=== PATIENT | male | born 1965 | race Two or more races ===

== ENCOUNTER 2024-09-04 05:54 | Emergency (ER) | payer MEDICAID, SELFPAY ==
[2024-09-04] VITALS (9 sets, daily range): BP systolic 106–176; BP diastolic 70–95; PULSE 52–69; RESP 13–18; TEMP 36.3–36.8; O2SAT 96–99; BMI 28.8
--- NOTE | 2024-09-04 | XR_ITS ---
Examination: MRI right hand, without contrast Date and time of exam: September 04, 2024, 1726 hours INDICATIONS: Patient woke up this morning with swelling involving the dorsum of the hand Technique: Multiple axial sagittal and coronal images of the right hand have been obtained with the Siemens high-resolution 1.5 Mansi MRI scanner. Images obtained include T2-weighted fat-suppressed sagittal sections, TR 3500, TE 46, T2 weighted coronal fat suppressed images, TR 3050, TE 84, T2-weighted transverse fat suppressed images, TR 3260, TE 63, proton density transverse images, TR 4720 TE 46, and T1 weighted coronal images, TR 560, TE 13. Findings: Extensive edema dorsum of the hand Fluid collection consistent with abscess dorsal to the third fourth and fifth metacarpals, mediolateral dimension at least 5 cm dorsal palmar dimension , thickness 1.7 cm and proximal distal dimension at least 9 cm extending from the wrist to the proximal phalanges especially fourth and fifth digits Extensor tendons intact Negative for osteomyelitis No foreign bodies IMPRESSION: Fluid collection consistent with abscess dorsum of the hand as above, measuring 5 x 1.7 x 9 cm
--- NOTE | 2024-09-04 06:07 | XR_ITS ---
Examination: Hand, right 3 views Technique: Hand AP, oblique, lateral 3 views Date and time of exam: September 11, 2024 0614 hours INDICATIONS: Swelling involving the right hand today FINDINGS: No acute fracture Soft tissue swelling dorsum of hand No opaque foreign body No cortical bone destruction IMPRESSION: Soft tissue swelling dorsum of the hand No cortical bone destruction No opaque foreign body
--- NOTE | 2024-09-04 06:07 | XR_ITS ---
Examination: PA chest single view TECHNIQUE: Upright PA chest single view Date and time: September 04, 2024 0612 hours INDICATIONS: Weakness chest pain today. FINDINGS: Normal heart size Lungs are clear. The osseous structures are intact IMPRESSION: No active disease
--- NOTE | 2024-09-04 06:09 | PD.EDADULT ---
ED General RME/HPI General Chief complaint: Extremity Problem,Nontraumatic Stated complaint: SEVERE SWELLING TO RIGHT HAND AND WRIST Time Seen by Provider: 09/04/24 06:06 Arrival date/time: 09/04/24 05:54 RME / HPI RME / HPI narrative: DR. BERMUDEZ MAIN ED EVALUATION: 59 year old male with past medical history significant for hypertension and hyperlipidemia presents to the Emergency Department with complaint of right hand and wrist pain with swelling. Patient denies any fall or injury. No other symptoms reported at this time. At 1220 hours, the patient recalls poking his right finger with a cactus. Related Data Home Medications ?Medication ?Instructions ?Recorded ?Confirmed atorvastatin 20 mg tablet 20 mg PO QDAY 08/31/19 05/01/22 lisinopril 20 mg tablet 20 mg PO QDAY 08/31/19 05/01/22 Allergies Allergy/AdvReac Type Severity Reaction Status Date / Time No Known Allergies Allergy Verified 09/04/24 05:57 Review of Systems Review of Systems Systems Reviewed: All systems reviewed, normal except as documented Narrative Review of Systems: Constitutional: DENIES: fevers; Eyes: DENIES: loss of vision; Head/Ear/Nose: DENIES: loss of hearing. Throat: DENIES: dysphagia. Cardiovascular: DENIES: chest pain, dyspnea, or syncope. Respiratory: DENIES: shortness of breath; Gastrointestinal: DENIES: rectal bleeding or melena. Genitourinary: DENIES: dysuria (painful or difficult urination); Musculoskeletal: POSITIVES: right hand and wrist pain with swelling Skin: DENIES: rash; Neurological: DENIES: loss of function or movement; Psychiatric: DENIES: recent major life stressor, emotional problem, illicit drug use or abuse; Endocrinology: DENIES: weight change,; Hematologic/Lymphatic: DENIES: abnormal bruising. Allergic/Immunologic: DENIES: urticaria (hives). Past Medical History Past Medical History CARDIAC: Positive Cardiac Disorders, Hypercholesterolemia (TAKES MED) and Hypertension (TAKES MED) Family History FAMILY HISTORY: Positive Family Cardiac Disorders (MOTHER (HTN)) and Family Surgery (MOTHER) Social History SMOKING STATUS: Never smoker SUBSTANCE USE: does not use ALCOHOL: Never ED Exam Narrative Physical exam: Physical Exam: General: The vital signs were reviewed. The patient is non-toxic, in no apparent distress and appears healthy with a patent airway, no respiratory distress and has no apparent circulatory problems. Head & Scalp: Normocephalic, atraumatic. Face: Appears normal and is without lesions, deformity. Ears: Left external pinna appears normal. Right external pinna appears normal. Eyes: The sclera is anicteric. No obvious photophobia. The Left and Right Orbit/Lid/Conjunctiva appears normal without swelling, discoloration or injection. Nose: The nose is without deformity, discharge or tenderness; Throat: Appears normal. The mucous membranes are pink and moist without exudates, redness or mass seen. The tongue appears normal. Neck: The neck is supple and no apparent mass or adenopathy. Chest: The chest wall is normal in size and symmetry and has no chest wall tenderness or crepitus. The patient displays normal ventilator effort without retractions, accessory muscle use and has adequate air movement bilaterally with no wheezes and no rales. Cardiovascular: Regular rate and rhythm; No murmurs, rubs, or gallops; Gastrointestinal: The abdomen appears normal. No obvious hernias or mass. The abdomen is soft and benign, non-distended, with no pain, no guarding and no rebound tenderness. Bowel sounds are present and normal sounding. No CVA tenderness. Genitourinary: Back/Spine: Normal inspection Extremities/Musculoskeletal/lymphatic: Right hand is extremely swollen and diffusely red with minimal tenosynovitis. There is no purulence there is no obvious break in the skin and the swelling and redness extends down to the distal forearm maybe a third [address] way. There is a little break in the skin on the forearm where he says he scraped up a door. The swelling involves all the fingers thumb wrist and hand up to the forearm. Otherwise the proximal humerus elbow and proximal forearm are within normal limits. There is no visual lymphangitic streak moving up the arm. The bilateral upper and lower extremities are warm. There is no evidence of arterial insufficiency. There is no evidence of venous insufficiency/edema. The patient spontaneously moves bilateral upper and lower extremities with no pain and no limitation of movement. There is no apparent, injury or trauma. Skin: The skin is warm, dry and intact. No rashes. No petechia. No purpura. No abnormal bruising. The color is appropriate with no cyanosis. Mental status/Psychiatric: Mental status is appropriate for age. The patient has no apparent delusions, visual hallucinations, no apparent audible hallucinations. The patient has no apparent suicidal thoughts/ideation and no apparent homicidal thoughts/ideation. Neurological: The patient is awake, alert, interactive, cordial, cooperative and is oriented to name and situation. The patient follows commands and answers historical question with no impairment. There is no visual disturbance apparent. The pupils are equal and reactive bilaterally with normal eye movements and no diplopia The bilateral upper and lower extremities have normal strength, normal range of motion and normal functioning. The gait, station and balance appear to be baseline with no acute change Course Quality Measures none Orders Category Date Time Status Insert IV NOW Care 09/04/24 06:07 Active MRI Screening NOW Care 09/04/24 15:24 Active Referral - Mover Helper Stat Cons 09/04/24 12:26 Active MR hand RT wo con Stat Exams 09/04/24 Ordered US venous doppler UE RT Stat Exams 09/04/24 06:08 Completed XR chest 1V portable Stat Exams 09/04/24 06:07 Completed XR hand comp RT min 3V Stat Exams 09/04/24 06:07 Completed Blood Culture (Lab) Stat Lab 09/04/24 06:34 Received CBC Stat Lab 09/04/24 06:34 Completed Comprehensive Metabolic Panel Stat Lab 09/04/24 06:34 Completed Lactate (Lactic Acid) Stat Lab 09/04/24 06:34 Completed Urinalysis, C/S if Indicated Stat Lab 09/04/24 06:34 Completed Piper/Tazo 3.375 gm Premix [Zosyn] Med 09/04/24 22:00 Active 3.375 gm in 50 ml IV Q8HR Piper/Tazo 3.375 gm Premix [Zosyn] Med 09/04/24 06:12 Discontinued 3.375 gm in 50 ml IV X1 Piper/Tazo 3.375 gm Premix [Zosyn] Med 09/04/24 15:30 Discontinued 3.375 gm in 50 ml IV X1 Vancomycin Inj 1,000 mg Med 09/04/24 06:13 Discontinued Sodium Chloride 0.9% 250 ml [Ns] 250 ml IV X1 Vital Signs Vital signs: Vital Signs Temperature 98.1 F 09/04/24 06:01 Pulse Rate 68 09/04/24 06:01 Respiratory Rate 18 09/04/24 06:01 Blood Pressure 176/95 H 09/04/24 06:01 Pulse Oximetry (%) 96 09/04/24 06:01 Discharge Plan Plan Patient Disposition: Admit Acute Care w/in Hospital Discharge Disposition comment: Hospitalist to admit Prescriptions/Referrals Prescriptions/Med Rec: No Action atorvastatin 20 mg Tablet 20 mg PO QDAY lisinopril 20 mg Tablet 20 mg PO QDAY Referrals: No Primary/Family,Physician [Primary Care Provider] - In 1 week Problem List Clinical Impression: Cellulitis of hand, right, Lymphangitis, Tenosynovitis Patient/Caregiver Discharge Instructions Print Language: Cymro Stand Alone Forms: Melodie Award Info., Patient Portal Info Letter MDM Narrative [facility] hospital course: I was asked to come see this patient in triage area has got an obvious swollen hand that is red and concerning for infection possible DVT. Will work him up at 0605 hrs. Medical workup is back reveals an ultrasound of the right upper extremity with no DVT. X-ray of the hand read by myself reveals no foreign body lots of soft tissue swelling though. There is no fracture or dislocation. CBC and CHEM panels are unremarkable. I went back in the room asked the patient if he about his hand and any other possible mechanism. He does recall now a cactus poking his right fourth finger but really did not think much of it but this occurred evidently yesterday. Also patient reports that the swelling which was on the distal forearm is now moving more proximally another 2 inches since this morning. Clinically patient does not have a necrotizing fasciitis he probably has early tenosynovitis and all fingers are involved as the whole hand and forearm half-way up is swollen and red. There is a little hint of a red streak on the right medial side of the arm. We have no Ortho on-call and no hand surgeon on-call so the transfer nurse was contacted and work on a transfer for this patient. At 1220 hours, the patient recalls poking his right finger with a cactus. Patient obviously has a cellulitis rapidly extending from this. We have no hand surgeon at this facility and have no Ortho on-call. Transfer nurse was contacted and they started the process eventually got [facility] Darryl spoke with Griselda and presented the case.. At 1500 hrs. I am informed that the hand surgeon Dr. Lim does not feel any surgical intervention is needed and that the patient can be admitted anywhere for antibiotics. I asked [facility] ER transfer nurse to asked them if the hospitalist here at this facility can recontact them in a day or 2 if the patient is not getting better. She recontacted current medical and stated they would not guarantee their availability or ability to assist at that point. I then called the resident hospitalist on-call discussed with the hospitalist admitting the patient here and calling back if they need to have further discussion. At 1700 hrs. they called MR and the hand scan is still pending and will probably be 1725 before they get to them. Because of the delay in the report of probably come back after 1800 hrs. this to be signed out to my oncoming partner at [address] Almanza. Bottom line is this patient will be transferred to another facility if there are abscesses on the hand MRI. This was the plan per the previous resident and the transfer nurse consultations with hand surgeons at [facility]. Oumou Yusuf, jose luis scribing for and in the presence of Dr. Bermudez. Clinical Information Provided by patient Medical Records Reviewed [facility] Meds/Rx Considered, not Ordered None Labs/Rad/Tests considered, not Ordered None Chronic Illness/Social Conditions Add or document further as needed: Hypertension and hyperlipidemia Imaging Radiology reports / interpretation(s): Procedure(s): US venous doppler UE RT Accession Number(s): [id number] cc: Chan Bermudez MD; Amos Yadav MD; NO PRIMARY/FAMILY,PHYSICIAN~ Examination: Duplex scan of the upper extremity, unilateral right Date and time of exam: September 04, 2024 0740 hours INDICATIONS: Right hand swelling pressure and pain today Technique: Duplex scan of the extremity veins using B-mode/grayscale imaging and Doppler spectral analysis and color flow Attention is directed to internal echogenicity, compression and augmentation involving these veins, color flow assessment, spectral analysis Findings: Major deep venous structures in the extremity demonstrate normal course and caliber. There is no evidence of deep vein thrombosis. Normal color flow and spectral analysis Impression: Negative for DVT.. Dictated By: Amos Yadav MD Procedure(s): XR hand comp RT min 3V Accession Number(s): [id number] cc: Chan Bermudez MD; Amos Yadav MD~ Examination: Hand, right 3 views Technique: Hand AP, oblique, lateral 3 views Date and time of exam: September 11, 2024 0614 hours INDICATIONS: Swelling involving the right hand today FINDINGS: No acute fracture Soft tissue swelling dorsum of hand No opaque foreign body No cortical bone destruction IMPRESSION: Soft tissue swelling dorsum of the hand No cortical bone destruction No opaque foreign body Dictated By: Amos Yadav MD Procedure(s): XR chest 1V portable Accession Number(s): [id number] cc: Chan Bermudez MD; Amos Yadav MD~ Examination: PA chest single view TECHNIQUE: Upright PA chest single view Date and time: September 04, 2024 0612 hours INDICATIONS: Weakness chest pain today. FINDINGS: Normal heart size Lungs are clear. The osseous structures are intact IMPRESSION: No active disease Dictated By: Amos Yadav MD Medication Administration(s) Medication Administration History Piperacillin/Tazobactam/Dextrose (Zosyn) 3.375 gm in 50 mls @ 12.5 mls/hr IV Q8HR SELVIN Stop: 09/11/24 21:59 Discontinued Medications Vancomycin HCl 1,000 mg/ (Sodium Chloride) 250 mls @ 150 mls/hr IV X1 ONE Stop: 09/04/24 07:52 Last Infusion: 09/04/24 10:50 Dose: Infused Documented By: Admin: 09/04/24 09:09 Dose: 150 mls/hr Documented By: ER Piperacillin/Tazobactam/Dextrose (Zosyn) 3.375 gm in 50 mls @ 100 mls/hr IV X1 ONE Stop: 09/04/24 06:41 Last Infusion: 09/04/24 09:01 Dose: Infused Documented By: Admin: 09/04/24 08:31 Dose: 100 mls/hr Documented By: ER Piperacillin/Tazobactam/Dextrose (Zosyn) 3.375 gm in 50 mls @ 100 mls/hr IV X1 ONE Stop: 09/04/24 15:59 Last Admin: 09/04/24 16:26 Dose: 100 mls/hr Documented By: EF Diagnosis Differential diagnosis: carpal tunnel syndrome, wrist sprains or fractures, tendinitis Most likely dx, and/or detailed dx discussion: Cellulitis of hand, right Lymphangitis Tenosynovitis Dispositon Disposition: Transfer
[2024-09-04 06:57] LABS: Collection Type, Urine Clean Catch
[2024-09-04 07:03] LABS: Lactate (Lactic Acid) 0.8 mMol/L (0.4-2.0)
[2024-09-04 07:04] LABS: Basophils % (Auto) 0 % (0-2.5); Eosinophils # (Auto) 0.1 Thou/mm3 (0.0-0.5); Eosinophils % (Auto) 1 % (0-10); Hematocrit 43.5 % (41.0-53.0); Hemoglobin 15.1 g/dL (13.5-16.0); Immature Granulocytes % (Auto) 0 % (0-0); Immature Granulocytes Auto 0.01 Thou/mm3 (0.00-0.00); Lymphocytes # (Auto) 1.4 Thou/mm3 (1.0-4.8); Lymphocytes % (Auto) 18 % (10-50); Mean Corpuscular HGB Conc 34.7 g/dl (31.0-37.0); Mean Corpuscular Hemoglobin 30.4 pg (25.0-35.0); Mean Corpuscular Volume 88 fL (80-100); Monocytes # (Auto) 0.6 Thou/mm3 (0.0-0.8); Monocytes % (Auto) 8 % (0-12); Neutrophils # (Auto) 5.7 Thou/mm3 (1.8-7.7); Neutrophils % (Auto) 73 % (37-80); Nucleated Red Blood Cell % 0 /100 WBC (0); Platelet Count 214 Thou/mm3 (140-440); RDW Standard Deviation 44.4 fL (35.1-43.9); Red Blood Count 4.96 Miln/mm3 (4.50-5.90); White Blood Count 7.9 Thou/mm3 (3.8-10.6)
[2024-09-04 07:13] LABS: Amorphous Crystals,Urine Present (Absent); Bacteria,Urine Rare; Bilirubin,Urine Negative (Negative); Blood,Urine Negative (Negative); Clarity,Urine Clear (Clear/Hazy); Color,Urine Yellow (Lt Yel-Yel); Culture Indicated,Urine Not Indicated; Glucose, Urine Negative (Negative); Ketones,Urine Negative (Negative); Leukocyte Esterase,Urine Negative (Negative); Nitrite,Urine Negative (Negative); PH,Urine 6.5 (5.0-7.0); Protein,Urine Negative (Neg - Trace); RBC,Urine 4 /hpf (0-3); Specific Gravity,Urine 1.024 (1.001-1.035); Squamous Epithelial Cell,Urine < 1 /hpf (0-5); Urobilinogen,Urine Negative mg/dL (0.0-1.0); WBC,Urine 1 /hpf (0-5)
[2024-09-04 07:26] LABS: Alanine Aminotransferase 30 U/L (10-49); Albumin, Serum 4.3 gm/dL (3.5-5.0); Albumin/Globulin Ratio 1.7 (1.2-2.2); Alkaline Phosphatase 50 U/L (46-116); Anion Gap 7 (7-16); Aspartate Amino Transferase 32 U/L (0-34); BUN/Creatinine Ratio 11 Ratio (12-20); Blood Urea Nitrogen 9 mg/dL (9-23); Carbon Dioxide 27.5 mMol/L (20.0-31.0); Chloride 104 mMol/L (98-107); Creatinine (Component) 0.8 mg/dL (0.6-1.3); Estimated Creatinine Clearance 98.4 mL/min (>60); Globulin 2.5 gm/dL (2.3-3.5); Glucose 101 mg/dL (74-106); Osmolality,Calculated 274 (275-295); Sodium 138 mMol/L (136-145); Total Protein 6.8 gm/dL (5.7-8.2); eGFR > 60 See Note
[2024-09-04] MEDS: PIPER/TAZO 3.375 GM PREMIX 3.375 GM/50 ML BAG IV ×3 (08:31→21:25)
[2024-09-04] MEDS: Vancomycin Inj 1,000 MG in SODIUM CHLORIDE 0.9% 250 ML 250 ML 150 MG IV (09:09)
--- NOTE | 2024-09-04 12:26 | PC.CC ---
Addendum entered by Sanjeev Hidalgo RN 09/04/24 18:47: 1847 faxed MRI results to [facility]. Addendum entered by Sanjeev Hidalgo RN 09/04/24 18:45: 1844 MRI results came back reading fluid collection most consistent with abscess. Addendum entered by Sanjeev Hidalgo RN 09/04/24 18:05: 1805 MRI of hand id done, still pending the results. Unable to proceed further. Addendum entered by Sanjeev Hidalgo RN 09/04/24 18:04: [address] Naqvi and informed. Dr. Naqvi stated he will speak to Dr. Hernandez and order a MRI. 1519 called and spoke to Dr. Garay. He stated he would want the CT of the right hand to see if there is an abscess. If the abscess is not present then he can admit the pt. Addendum entered by Sanjeev Hidalgo RN 09/04/24 15:14: [address] Naqvi. He stated he spoke to Dr. Ann/resident to see if the team can admit the patient and Dr. Ann stated she will discuss it with her attending. Dr. Naqvi wants me to check with Dr. Garay. 1459 called and asked Ansley with [facility]. Ansley stated she cannot say anything for future. We can just present the case again at that time. [address] Naqvi and informed about the outcome with [facility]. He stated to ask [facility] if we admit the patient and administer IV antibiotics. However, if the patient?s hand condition worsens, is Dr. Lim willing to accept the patient at that time? error in previous timing. Right time was 1444 Addendum entered by Sanjeev Hidalgo RN 09/04/24 14:49: [address] Naqvi but he is not available at this time. 1442 received call from Ansley at [facility]. She stated that her hand surgeon, Dr. Butch Lim, stated there is no abscess present; therefore, no surgical intervention is needed. He recommended treating the infection with IV antibiotics. Addendum entered by Sanjeev Hidalgo RN 09/04/24 13:59: 1346 received call from Ansley at [facility]. She request to speak with Dr. Naqvi. Conference call connected. Addendum entered by Sanjeev Hidalgo RN 09/04/24 13:18: 1310 Called [facility] to initiate the transfer. Unable to connect. Addendum entered by Sanjeev Hidalgo RN 09/04/24 13:08: 1306 Called [facility], spoke to Ansley and initiated the transfer. Addendum entered by Sanjeev Hidalgo RN 09/04/24 12:58: 1258 clinicals sent to [facility]. Addendum entered by Sanjeev Hidalgo RN 09/04/24 12:57: 1255 Called [facility] supervisor, spoke to Tonya to initiate the transfer. She stated to contact [facility]. Addendum entered by Sanjeev Hidalgo RN 09/04/24 12:54: 1254 clinicals sent to [facility]. Original Note: 1240 clinicals sent to [facility] supervisor. [address] Naqvi pt needs to be transferred for right hand infection with tenosynovitis extending to forearm needs hand surgeon.
--- NOTE | 2024-09-04 17:21 | PD.RESEVENT ---
Documentation for date of: 09/04/24 Event Note Event Note: ED called for admission of Mr. Ribera who is a 59-year-old male past medical history significant for new diagnosis of hypertension presented to the ED complaining of right hand swelling. Patient states he slept on his right arm and woke up with diffuse swelling of the right hand and unable to move his finger. Patient denied any pain, warmth or tingling. Patient states that he felt a lot of pressure due to the diffuse swelling of his right hand. Patient states the only thing he recalls is that he was peeling cactus and a thorn went into his finger and he woke up this morning with diffuse swelling and stiffness. Requested the ED to order further imaging, ED physician have ordered MRI which is pending. Informed the ED to call back once the MRIs done. Dr. Baltazar (PGY-1)- Internal medicine resident
--- NOTE | 2024-09-04 18:02 | PD.EDADDENDU ---
Emergency Room Addendum <Yovana Cespedes - Last Filed: 09/04/24 22:33> Addendum Narrative: I took over the care from Dr. Naqvi at 6 PM on 09/04/2024, see his notes for complete H&P and ED course. I was asked to take over this patient pending MRI of the hand. I reviewed all diagnostic test results. My review of the MRI of the right hand shows fluid collection consistent with abscess dorsum of the hand as above, measuring 5 x 1.7 x 9 cm. I discussed the case with Dr. Lim, hand surgeon at [facility]. About the presentation and exam and diagnostics and treatments here. And need of further care in the hospital there. Will accept the patient for transfer. <Negro Almanza MD - Last Filed: 09/05/24 00:51> Addendum Narrative: I took over the care from Dr. Naqvi at 6 PM on 09/04/2024, see his notes for complete H&P and ED course. I was asked to take over this patient pending MRI of the hand. My review of the MRI of the right hand report shows fluid collection consistent with abscess dorsum of the hand, measuring 5 x 1.7 x 9 cm. I discussed the case with Dr. Lim, hand surgeon at [facility]. About the presentation and exam and diagnostics and treatments here. And need of further care in the hospital there. Will accept the patient for transfer. During my watch, the patient remained stable. Negro Almanza MD
--- NOTE | 2024-09-04 20:12 | PC.NURSE ---
2006 RECEIVED CALL FROM [facility] AT THIS TIME FOR CLINICALS.
--- NOTE | 2024-09-04 23:08 | PC.LAC ---
2232 PT ACCEPTED TO [facility] BY DR SAM ED TO ED. REPORT TO [phone].
--- NOTE | 2024-09-05 00:45 | PC.NURSE ---
attempted to call report no answer
== END 2024-09-05 00:49 | disposition short-term general hospital (02) ==
PROVIDERS: Emergency Medicine; Emergency Provider Emergency Medicine
DX: M25.431 Effusion, right wrist (principal); R53.1 Weakness; R07.9 Chest pain, unspecified; M79.89 Other specified soft tissue disorders; M79.641 Pain in right hand; Z75.1 Person awaiting admission to adequate facility elsewhere
CPT/HCPCS: 36415; 71045; 73130; 73218; 80053; 81001; 83605; 85025; 87040; 93971; 96365; 96366; 96367; 99285; J2543; J3370; J7050